=== PATIENT | male | born 1985 | race Caucasian/White ===

== ENCOUNTER 2024-08-28 13:10 | Outpatient (REF) | payer OTHER, SELFPAY | END 2024-08-28 13:11 | disposition home or self-care (01) | LOC: HO.BBR 13:10 | PROVIDERS: PCP Nurse Practitioner Family; Visit Provider Internal Medicine Hematology & Oncology | DX: R71.8 Other abnormality of red blood cells (principal) | CPT/HCPCS: 85018; 99195 ==

== ENCOUNTER 2024-09-16 14:48 | Outpatient (REF) | payer OTHER, SELFPAY | END 2024-09-16 14:49 | disposition home or self-care (01) | LOC: HO.BBR 14:48 | PROVIDERS: Visit Provider Internal Medicine Hematology & Oncology | DX: D58.2 Other hemoglobinopathies (principal); R79.89 Other specified abnormal findings of blood chemistry | CPT/HCPCS: 85018; 99195 ==

== ENCOUNTER 2024-10-02 14:41 | Outpatient (REF) | payer OTHER, SELFPAY | END 2024-10-02 14:42 | disposition home or self-care (01) | LOC: HO.BBR 14:41 | PROVIDERS: PCP Nurse Practitioner Family; Visit Provider Internal Medicine Hematology & Oncology | DX: R73.09 Other abnormal glucose (principal) | CPT/HCPCS: 85018; 99195 ==

== ENCOUNTER 2024-10-21 13:19 | Outpatient (REF) | payer OTHER, SELFPAY | END 2024-10-21 13:20 | disposition home or self-care (01) | LOC: HO.BBR 13:19 | PROVIDERS: PCP Nurse Practitioner Family; Visit Provider Internal Medicine Hematology & Oncology | DX: D72.829 Elevated white blood cell count, unspecified (principal) | CPT/HCPCS: 85014; 85018; 99195 ==

== ENCOUNTER 2024-10-24 13:51 | Outpatient (REF) | payer OTHER, SELFPAY | END 2024-10-24 13:52 | disposition home or self-care (01) | LOC: HO.BBR 13:51 | PROVIDERS: PCP Nurse Practitioner Family; Visit Provider Internal Medicine Hematology & Oncology | DX: R71.8 Other abnormality of red blood cells (principal) | CPT/HCPCS: 85018; 99195 ==

== ENCOUNTER 2024-11-05 13:42 | Outpatient (REF) | payer OTHER, SELFPAY | END 2024-11-05 13:43 | disposition home or self-care (01) | LOC: HO.BBR 13:42 | PROVIDERS: PCP Nurse Practitioner Family; Visit Provider Internal Medicine Hematology & Oncology | DX: R73.09 Other abnormal glucose (principal) | CPT/HCPCS: 85014; 85018; 99195 ==

== ENCOUNTER 2024-11-24 14:53 | Outpatient (REF) | payer OTHER, SELFPAY | END 2024-11-24 14:54 | disposition home or self-care (01) | LOC: HO.BBR 14:53 | PROVIDERS: PCP Nurse Practitioner Family; Visit Provider Internal Medicine Hematology & Oncology | DX: R73.09 Other abnormal glucose (principal) | CPT/HCPCS: 85018; 99195 ==